=== PATIENT | female | born 1985 | race American Indian/Alaskan Native ===

== ENCOUNTER 2018-10-13 06:45 | Emergency (ER) | payer BC ==
[2018-10-13 07:16] VITALS: BP 135/91
--- NOTE | 2018-10-13 07:17 | Emergency Department Report ---
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 Patient presented to the ER stating that she is having a right lower leg and knee pain since last night. Patient denied any recent periods of immobility. No history of DVT or PE before. Patient stated that she started walking for a long distance that she is unable to finish because of the pain. Patient denied any fever or chills. No shortness of breath or chest pain. - Related Data Allergies Allergy/AdvReac Type Severity Reaction Status Date / Time No Known Allergies Allergy Unverified 10/13/18 07:01 ED Review of Systems ROS: Stated complaint: RT LEG PAIN Other details as noted in HPI Comment: All other systems reviewed and negative Constitutional: denies: chills, fever Respiratory: denies: shortness of breath Cardiovascular: denies: chest pain, palpitations Gastrointestinal: denies: abdominal pain, nausea ED Past Medical Hx - Past Medical History Previous Medical History?: Yes Hx Hypertension: Yes Hx Headaches / Migraines: Yes - Surgical History Past Surgical History?: Yes Additional Surgical History: x3 - Social History Smoking Status: Former Smoker Substance Use Type: Alcohol ED Physical Exam - General Limitations: No Limitations General appearance: alert, in no apparent distress - Head Head exam: Present: atraumatic, normocephalic, normal inspection - Neck Neck exam: Present: normal inspection - Respiratory Respiratory exam: Present: normal lung sounds bilaterally. Absent: respiratory distress, wheezes, rales, rhonchi, stridor, chest wall tenderness, accessory muscle use, decreased breath sounds, prolonged expiratory - Cardiovascular Cardiovascular Exam: Present: regular rate, normal rhythm, normal heart sounds - GI/Abdominal GI/Abdominal exam: Present: soft. Absent: distended, tenderness, guarding, rebound - Extremities Exam Extremities exam: Present: normal inspection, full ROM, normal capillary refill. Absent: tenderness, pedal edema, joint swelling, calf tenderness - Back Exam Back exam: Present: normal inspection, full ROM - Neurological Exam Neurological exam: Present: alert, oriented X3 - Skin Skin exam: Present: warm, intact, normal color ED Course Vital Signs 10/13/18 07:16 Temperature 98.8 F Pulse Rate 74 Respiratory 18 Rate Blood Pressure 135/91 [Left] O2 Sat by Pulse 100 Oximetry ED Medical Decision Making - Lab Data Result diagrams: 10/13/18 07:17 10/13/18 07:17 - Radiology Data Radiology results: report reviewed Referring Physician: CHRISTI UREÑA Patient Name: ORIN OROZCO Date of : 1985 Sex: Female Report Date: 2018-10-13 Report Status: Finalized Findings [facility] [address] [place] [address] Vascular Lab Report Signed Patient: ORIN OROZCO MR#: [id number] : 1985 Acct:[id number] Age/Sex: 33 / F ADM Date: 10/13/18 Loc: ED Attending Dr: Ordering Physician: CHRISTI UREÑA Date of Service: 10/13/18 Procedure(s): VL venous duplex LE RT Accession Number(s): [id number] cc: CHRISTI UREÑA PROCEDURE: VL VENOUS DUPLEX LE RT TECHNIQUE: Transverse longitudinal sonograms obtained right lower extremity with ochoa scale sonography. Spectral and color Doppler evaluation. Duplex study. Compression augmentation performed. HISTORY: right lower extremity pain, rule out DVT COMPARISONS: None FINDINGS: The right common femoral, superficial femoral, popliteal and visualized calf veins demonstrate normal flow with Doppler. No filling defect. Unremarkable compression and augmentation. No deep venous thrombus. Visualize right great saphenous is unremarkable. Images were also obtained of the left common femoral and superficial femoral vein. No evidence of left-sided deep venous thrombus in these vessels .. IMPRESSION: No deep venous thrombus identified. 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 Patient presented to the ER stating that she is having a right lower leg and knee pain since last night. Patient denied any recent periods of immobility. No history of DVT or PE before. Patient stated that she started walking for a long distance that she is unable to finish because of the pain. Patient denied any fever or chills. No shortness of breath or chest pain. Right knee x-rays negative for acute finding. Right lower extremity Doppler ultrasound is negative for DVT. Patient is given Naprosyn and 500 mg twice a day for 7 days to help with inflammation. Critical care attestation.: If time is entered above; I have spent that time in minutes in the direct care of this critically ill patient, excluding procedure time. ED Disposition Clinical Impression: Knee pain, right, Leg pain, right Disposition: DC-01 TO HOME OR SELFCARE Is pt being admited?: No Condition: Stable Instructions: Knee Pain (ED) Referrals: PRIMARY CARE, [Primary Care Provider] - 3-5 Days
[2018-10-13 07:26] LABS: Hematocrit 38.2 % (30.3-42.9); Hemoglobin 12.9 gm/dl (10.1-14.3); Mean Corpuscular HGB Conc 34 % (30-34); Mean Corpuscular Volume 85 fl (79-97); Platelet Count 276 K/mm3 (140-440); Red Blood Count 4.51 M/mm3 (3.65-5.03); Red Cell Distribution Width 13.1 % (13.2-15.2)
--- NOTE | 2018-10-13 07:44 | XRay Report ---
PROCEDURE: XR KNEE 3V RT TECHNIQUE: 3 views of the right knee were obtained. HISTORY: right knee pain COMPARISONS: None FINDINGS: All 3 compartments appear normal. There is no evidence of fracture or joint effusion. The soft tissue s appear normal. IMPRESSION: Within normal limits.. This document is electronically signed by Joe Medrano MD., October 13 2018 07:42:51 AM ET
[2018-10-13 07:46] LABS: BUN/Creatinine Ratio 14; Blood Urea Nitrogen 14 mg/dL (7-17); Calcium 10.3 mg/dL (8.4-10.2); Hemolysis Index 22
[2018-10-13 08:10] LABS: INR 0.89 (0.87-1.13); Partial Thromboplastin Time 27.4 Sec. (24.2-36.6)
--- NOTE | 2018-10-13 09:05 | Vascular Lab Report ---
PROCEDURE: VL VENOUS DUPLEX LE RT TECHNIQUE: Transverse longitudinal sonograms obtained right lower extremity with ochao scale sonograp hy. Spectral and color Doppler evaluation. Duplex study. Compression augmentation performed. HISTORY: right lower extremity pain, rule out DVT COMPARISONS: None FINDINGS: The right common femoral, superficial femoral, popliteal and visualized calf veins demonstrate normal flow with Doppler. No filling defect. Unremarkable compression and augmentation. No deep venous thro mbus. Visualize right great saphenous is unremarkable. Images were also obtained of the left common femoral and superficial femoral vein. No evidence of lef t-sided deep venous thrombus in these vessels .. IMPRESSION: No deep venous thrombus identified. This document is electronically signed by Jesus Harman MD., October 13 2018 09:04:00 AM ET
== END 2018-10-13 09:34 | disposition home or self-care (01) ==
LOC: ED 06:45
DX: M25.561 Pain in right knee (principal); I10 Essential (primary) hypertension; G43.909 Migraine, unspecified, not intractable, without status migrainosus; Z87.891 Personal history of nicotine dependence
CPT/HCPCS: 36415; 80048; 85027; 85379; 85610; 85730; 99284

== ENCOUNTER 2018-10-27 23:27 | Emergency (ER) | payer BC ==
[2018-10-28] MEDS ORDERED: ASPIRIN PO ONE (00:08)
[2018-10-28 00:47] LABS: INR 0.97 (0.87-1.13)
[2018-10-28 00:48] LABS: Partial Thromboplastin Time 23.9 Sec. (24.2-36.6)
[2018-10-28] MEDS ORDERED: NACL 0.9% 1000 ML 1,000 ML IV ONE (00:55)
[2018-10-28] MEDS ORDERED: TORADOL IV ONE (00:55)
[2018-10-28] MEDS ORDERED: TYLENOL PO ONE (00:55)
[2018-10-28 00:58] LABS: BUN/Creatinine Ratio 12; Blood Urea Nitrogen 14 mg/dL (7-17); Calcium 9.6 mg/dL (8.4-10.2); Hemolysis Index 3
--- NOTE | 2018-10-28 00:58 | Emergency Department Report ---
ED Chest Pain HPI - General Chief Complaint: Chest Pain Stated Complaint: CHEST TIGHTNESS Time Seen by Provider: 10/28/18 00:47 Source: patient, RN notes reviewed, old records reviewed Mode of arrival: Ambulatory Limitations: No Limitations - History of Present Illness Initial Comments: This is a 33-year-old female. Patient is not known to this provider previously. The patient reports that she is not . The patient presents to the emergency room with a complaint of central chest pain and pressure. The pain increases with deep inspiration. Its are present intermittently for the past few days. The patient denies vomiting, diaphoresis, exertional shortness of breath. No recent aspirin use. The patient denies oral contraceptive use. Recently seen in this department for nontraumatic right lower extremity pain, found to have elevated d-dimer, but negative lower extremity DVT study. Patient reports no family history of heart disease, DVT or pulmonary embolus that she is aware of. Patient makes no complaint of headache, neck pain, abdominal pain, extremity weakness, or numbness. Patient makes no complaint of hemoptysis, hematemesis, or bright red blood per rectum. Patient does have subacute right leg pain, right knee pain, which she was told was "arthritis." She is taking Naprosyn which was prescribed for her, with no severe change in her symptomatology MD Complaint: chest pain, other -: Gradual, days(s) Onset: during rest Pain Location: substernal Pain Radiation: none Severity scale (0 -10): 7 Quality: aching, heaviness Consistency: intermittent Worsens With: inspiration, palpation Aspirin use within the Past 7 Days: (0) No - Related Data On Oral Contraceptives: No Previous Rx's Medication Instructions Recorded Last Taken Type Naproxen [Naprosyn] 500 mg PO BID #14 tablet 10/13/18 Unknown Rx Allergies Allergy/AdvReac Type Severity Reaction Status Date / Time No Known Allergies Allergy Verified 10/28/18 00:48 Heart Score - HEART Score History: Slightly suspicious EKG: Normal Age: < 45 Risk factors: No known risk factors Troponin: < normal limit HEART Score: 0 - Critical Actions Critical Actions: 0-3 pts:0.9-1.7%risk of adverse cardiac event.Candidate for discharge ED Review of Systems ROS: Stated complaint: CHEST TIGHTNESS Other details as noted in HPI Constitutional: denies: fever Eyes: denies: eye discharge ENT: denies: epistaxis Respiratory: denies: cough Cardiovascular: chest pain Gastrointestinal: denies: abdominal pain Genitourinary: denies: dysuria Musculoskeletal: arthralgia Skin: denies: lesions Neurological: denies: weakness ED Past Medical Hx - Past Medical History Hx Hypertension: Yes Hx Arthritis: Yes (rt knee) Hx Headaches / Migraines: Yes - Surgical History Additional Surgical History: x3 - Social History Smoking Status: Former Smoker Substance Use Type: Alcohol - Medications Home Medications: Home Medications Medication Instructions Recorded Confirmed Last Taken Type Naproxen [Naprosyn] 500 mg PO BID #14 tablet 10/13/18 Unknown Rx ED Physical Exam - General Limitations: No Limitations General appearance: alert, in no apparent distress - Head Head exam: Present: atraumatic, normocephalic - Eye Eye exam: Present: normal appearance, EOMI. Absent: nystagmus - ENT ENT exam: Present: normal exam, normal orophraynx, mucous membranes moist, normal external ear exam - Neck Neck exam: Present: normal inspection, full ROM. Absent: tenderness, meningismus - Respiratory Respiratory exam: Present: normal lung sounds bilaterally, chest wall tenderness. Absent: respiratory distress - Cardiovascular Cardiovascular Exam: Present: regular rate, normal rhythm, normal heart sounds. Absent: bradycardia, tachycardia, irregular rhythm, systolic murmur, diastolic murmur, rubs, gallop - GI/Abdominal GI/Abdominal exam: Present: soft. Absent: distended, tenderness, guarding, rebound, rigid, pulsatile mass - Extremities Exam Extremities exam: Present: normal inspection, full ROM, other (2+ pulses noted in the bilateral upper extremities. There is no palpable cord. There is negative Homans sign. There is no redness, pus or streaking.). Absent: pedal edema, joint swelling, calf tenderness - Back Exam Back exam: Present: normal inspection, full ROM. Absent: tenderness, CVA tenderness (R), paraspinal tenderness, vertebral tenderness - Neurological Exam Neurological exam: Present: alert, normal gait, other (Extraocular movements intact. Tongue midline. No facial droop. Facial sensation intact to light touch in the V1, V2, V3 distribution bilaterally. 5 and 5 strength in 4 extremities.. Sensation is intact to light touch in 4 extremities.). Absent: motor sensory deficit - Psychiatric Psychiatric exam: Present: normal affect, normal mood - Skin Skin exam: Present: warm, dry, intact, normal color. Absent: rash ED Course Vital Signs 10/28/18 10/28/18 10/28/18 00:27 01:05 01:08 Temperature 98 F Pulse Rate 75 Respiratory 16 15 15 Rate Blood Pressure 144/118 [Left] O2 Sat by Pulse 100 Oximetry IRINA score - Irina Score Age > 65: (0) No Aspirin use within the Past 7 Days: (0) No 3 or more CAD Risk Factors: (0) No 2 or more Angina events in past 24 hrs: (0) No Known CAD with more than 50% Stenosis: (0) No Elevated Cardiac Markers: (0) No ST Deviation Greater than 0.5mm: (0) No IRINA Score: 0 ED Medical Decision Making - Lab Data Result diagrams: 10/28/18 00:15 10/28/18 00:15 Vital Signs 10/28/18 10/28/18 10/28/18 00:27 01:05 01:08 Temperature 98 F Pulse Rate 75 Respiratory 16 15 15 Rate Blood Pressure 144/118 [Left] O2 Sat by Pulse 100 Oximetry Lab Results 10/28/18 10/28/18 10/28/18 Range/Units 00:15 00:15 00:15 WBC 7.1 (4.5-11.0) K/mm3 RBC 4.25 (3.65-5.03) M/mm3 Hgb 12.0 (10.1-14.3) gm/dl Hct 35.9 (30.3-42.9) % MCV 84 (79-97) fl MCH 28 (28-32) pg MCHC 33 (30-34) % RDW 13.1 L (13.2-15.2) % Plt Count 322 (140-440) K/mm3 Lymph % (Auto) 56.0 H (13.4-35.0) % [place] % (Auto) 5.2 (0.0-7.3) % Eos % (Auto) 2.6 (0.0-4.3) % Baso % (Auto) 0.6 (0.0-1.8) % Lymph # 4.0 (1.2-5.4) K/mm3 [place] # 0.4 (0.0-0.8) K/mm3 Eos # 0.2 (0.0-0.4) K/mm3 Baso # 0.0 (0.0-0.1) K/mm3 Seg Neutrophils % 35.6 L (40.0-70.0) % Seg Neutrophils # 2.5 (1.8-7.7) K/mm3 PT (12.2-14.9) Sec. INR (0.87-1.13) APTT (24.2-36.6) Sec. D-Dimer (0-234) ng/mlDDU Sodium 140 (137-145) mmol/L Potassium 3.9 (3.6-5.0) mmol/L Chloride 103.7 (98-107) mmol/L Carbon Dioxide 23 (22-30) mmol/L Anion Gap 17 mmol/L BUN 14 (7-17) mg/dL Creatinine 1.2 (0.7-1.2) mg/dL Estimated GFR > 60 ml/min BUN/Creatinine Ratio 12 % Glucose 94 (65-100) mg/dL Calcium 9.6 (8.4-10.2) mg/dL Troponin T < 0.010 (0.00-0.029) ng/mL HCG, Qual Negative (Negative) 10/28/18 Range/Units 00:15 WBC (4.5-11.0) K/mm3 RBC (3.65-5.03) M/mm3 Hgb (10.1-14.3) gm/dl Hct (30.3-42.9) % MCV (79-97) fl MCH (28-32) pg MCHC (30-34) % RDW (13.2-15.2) % Plt Count (140-440) K/mm3 Lymph % (Auto) (13.4-35.0) % [place] % (Auto) (0.0-7.3) % Eos % (Auto) (0.0-4.3) % Baso % (Auto) (0.0-1.8) % Lymph # (1.2-5.4) K/mm3 [place] # (0.0-0.8) K/mm3 Eos # (0.0-0.4) K/mm3 Baso # (0.0-0.1) K/mm3 Seg Neutrophils % (40.0-70.0) % Seg Neutrophils # (1.8-7.7) K/mm3 PT 13.5 (12.2-14.9) Sec. INR 0.97 (0.87-1.13) APTT 23.9 L (24.2-36.6) Sec. D-Dimer 343.03 H (0-234) ng/mlDDU Sodium (137-145) mmol/L Potassium (3.6-5.0) mmol/L Chloride (98-107) mmol/L Carbon Dioxide (22-30) mmol/L Anion Gap mmol/L BUN (7-17) mg/dL Creatinine (0.7-1.2) mg/dL Estimated GFR ml/min BUN/Creatinine Ratio % Glucose (65-100) mg/dL Calcium (8.4-10.2) mg/dL Troponin T (0.00-0.029) ng/mL HCG, Qual (Negative) - EKG Data 10/28/18 02:26 EKG #1 shows normal sinus, 72 bpm, normal axis, normal intervals, Q waves noted in leads 3, this EKG is not consistent with ST elevation myocardial infarction. EKG #2 is unchanged from prior. Neither EKG consistent with ST elevation myocardial infarction. - Radiology Data Radiology results: report reviewed, image reviewed CT scan of the chest is negative for acute disease. No evidence of pulmonary embolus or pneumonia. - Medical Decision Making Differential diagnosis, including not limited to: GERD, gastritis, costochondritis, hiatal hernia, pulmonary embolus, acute coronary syndrome, pericarditis, myocarditis, pleuritis Assessment and plan: 33-year-old female, no pulmonary embolus or DVT risk factors, low risk by well's criteria, perc negative, pleuritic chest pain, elevated d-dimer, CT scan of the chest negative for acute disease. 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 Troponin negative 1, EKG unchanged 2, symptoms present intermittently for the past few days. As for the [employer] clinical policy, myocardial infarction may be excluded if symptoms present for greater than 8 hours with a single set of troponins, cardiac enzymes. The patient was treated appropriately for chest pain. The patient is at low risk for major adverse cardiac event. The patient is medically suitable to follow-up with an outpatient fur ironer or primary care doctor to complete a cardiac risk stratification. Discussed laboratory findings, CT scan findings and EKG findings with patient, who verbalized understanding. Given lack of tachycardia, lack of fever, myocarditis, pericarditis unlikely. Critical care attestation.: If time is entered above; I have spent that time in minutes in the direct care of this critically ill patient, excluding procedure time. ED Disposition Clinical Impression: Pleuritic chest pain Disposition: TO HOME OR SELFCARE Is pt being admited?: No Does the pt Need Aspirin: No Condition: Stable Instructions: Chest Pain (ED), Costochondritis (ED) Additional Instructions: Take the Naprosyn that was prescribed for the patient as directed. Alternate with [id number] acetaminophen, 650 mg, by mouth, every 4-6 hours. Follow up with a fur ironer within the next 3-5 days. Please return to the emergency room right away with new pain, worsening pain, hydration pain, projectile vomiting, change in mental status, confusion, inability to tolerate liquid feeds, new, worsening or different symptoms. Referrals: [facility] [Provider Group] - 3-5 Days [facility] [Provider Group] - 3-5 Days
[2018-10-28 00:59] LABS: Hematocrit 35.9 % (30.3-42.9); Mean Corpuscular HGB Conc 33 % (30-34); Mean Corpuscular Volume 84 fl (79-97); Platelet Count 322 K/mm3 (140-440); Red Blood Count 4.25 M/mm3 (3.65-5.03); Red Cell Distribution Width 13.1 % (13.2-15.2)
[2018-10-28 01:00] LABS: Eosinophils % (Auto) 2.6 % (0.0-4.3); Monocytes % (Auto) 5.2 % (0.0-7.3)
[2018-10-28 01:05] LABS: Basophils % (Auto) 0.6 % (0.0-1.8); Eosinophils # (Auto) 0.2 K/mm3 (0.0-0.4); Monocytes # (Auto) 0.4 K/mm3 (0.0-0.8)
--- NOTE | 2018-10-28 01:55 | Cat Scan Report ---
PROCEDURE: CT ANGIO CHEST TECHNIQUE: Computerized tomographic angiography of the chest was performed after the IV injection of iodinated nonionic contrast including image processing. The image data was postprocessed using 2-di mensional multiplanar reformatted (MPR) and 3-dimensional (MIP and/or volume rendered) techniques. Au tomated exposure control, adjustment of mA and/or kV according to patient size, or iterative reconstr uction dose optimization techniques were utilized. CT DOSE LENGTH PRODUCT: 838.2 mGycm HISTORY: pleuritic cp COMPARISONS: None . FINDINGS: Heart and pericardium: Normal. Thoracic aorta: Normal. Pulmonary vasculature: Normal. Lymph nodes: No enlarged thoracic lymph nodes. Lungs: Normal. Pleural space: No effusion, thickening, or pneumothorax. Musculoskeletal structures: No significant abnormality. Upper abdominal structures: No significant abnormality. IMPRESSION: There is no evidence of pulmonary arterial emboli. The lungs are clear without infiltrate, effusion or pneumothorax. . This document is electronically signed by Modesta Loera DO., October 28 2018 01:53:24 AM ET
[2018-10-28 02:50] VITALS: BP 133/80
== END 2018-10-28 02:51 | disposition home or self-care (01) ==
LOC: ED 23:27
DX: R07.2 Precordial pain (principal); I10 Essential (primary) hypertension; G43.909 Migraine, unspecified, not intractable, without status migrainosus; M19.90 Unspecified osteoarthritis, unspecified site; Z87.891 Personal history of nicotine dependence
CPT/HCPCS: 36415; 71275; 80048; 84484; 84703; 85025; 85379; 85610; 85730; 93005; 93010; 96374; 99284; J1885; J7030; Q9967